=== PATIENT | male | born 1985 | race Caucasian/White ===

== ENCOUNTER 2017-03-29 14:01 | Emergency (ER) | payer OTHER ==
[2017-03-29 14:07] VITALS: BP 135/71
[2017-03-29] MEDS ORDERED: Ciproflox/Dexameth OTIC.SUSP* 7.5 ML BTL ONE (16:02)
[2017-03-29] MEDS ORDERED: Ciproflox/Dexameth OTIC.SUSP* 7.5 ML BTL RIGHT EAR SCH (21:00)
--- NOTE | 2017-04-02 09:18 | ED ---
Throat Pain/Nasal Congestion - HPI Summary HPI Summary: Patient presents with two days of feeling like something is "in his right ear". He has not placed anything in his ear. He denies drainage, pain or redness. His hearing is intact. No fever, chills, TURNER, facial swelling or pain. - History of Current Complaint Chief Complaint: EDEarPain Time Seen by Provider: 03/29/17 14:59 Hx Obtained From: Patient Onset/Duration: Gradual Onset Severity: Mild Associated Signs And Symptoms: Positive: Negative Cough: None PMH/Surg Hx/FS Hx/Imm Hx Previously Healthy: Yes Infectious Disease History: No Infectious Disease History: Denies: Traveled Outside the [place] in Last 30 Days - Family History Known Family History: Positive: None - Social History Occupation: Employed Full-time Lives: With Family Alcohol Use: None Substance Use Type: Reports: None Smoking Status (MU): Never Smoked Tobacco Review of Systems Negative: Fever, Chills Negative: Sore Throat, Ear Ache, Nasal Discharge Negative: Rash Negative: Headache All Other Systems Reviewed And Are Negative: Yes Physical Exam Triage Information Reviewed: Yes Vital Signs On Initial Exam: Initial Vitals Temp 97.5 F 03/29/17 14:04 Vital Signs Reviewed: Yes Appearance: Positive: Well-Appearing, No Pain Distress, Well-Nourished Skin: Positive: Warm, Skin Color Reflects Adequate Perfusion, Dry, Soft Head/Face: Positive: Normal Head/Face Inspection Eyes: Positive: EOMI, IRINEO, Conjunctiva Clear ENT: Positive: Hearing grossly normal, Pharynx normal, TMs normal - left; right is obscured by cerumen Neck: Positive: Supple, Nontender, No Lymphadenopathy Respiratory/Lung Sounds: Positive: Breath Sounds Present Cardiovascular: Positive: RRR Musculoskeletal: Negative: Edema Left, Edema Right Neurological: Positive: Sensory/Motor Intact, Alert, Oriented to Person Place, Time, NV Bundle Intact Distally, Normal Gait Psychiatric: Positive: Affect/Mood Appropriate AVPU Assessment: Alert Diagnostics - Vital Signs Vital Signs Temp Pulse Resp BP Pulse Ox 03/29/17 14:06 97.1 F 61 20 135/71 100 03/29/17 14:04 97.5 F - Laboratory Lab Statement: Any lab studies that have been ordered have been reviewed, and results considered in the medical decision making process. EENT Course/Dx - Course Course Of Treatment: The patient's ear was flushed with warm water to remove cerumen impaction, after which his sensation of FB decreased. The aural canal was erythtematous on inspection after disimpaction and he was treated for potential otitis externa. - Differential Diagnoses Differential Diagnoses: Allergic Rhinitis, Barotrauma, Cerumen Impaction, Foreign Body, Otitis Externa, Otitis Media, Perforated TM, Sinusitis - Diagnoses Provider Diagnoses: Cerumen impaction, Otitis externa Discharge - Discharge Plan Condition: Stable Disposition: HOME Patient Education Materials: Otitis Externa (ED), Cerumen Impaction (ED) Referrals: Medhat Baugh NP [Primary Care Provider] - Additional Instructions: Please use 4 drops every 12 hours in your right ear for 7 days. Follow-up with your primary care provider if symptoms persist. Return to the emergency department if symptoms worsen.
== END 2017-03-29 16:10 | disposition home or self-care (01) ==
LOC: ED 14:01
DX: H61.21 Impacted cerumen, right ear (principal); H60.91 Unspecified otitis externa, right ear
CPT/HCPCS: 99282; A9270-GY

== ENCOUNTER 2018-05-14 16:20 | Emergency (ER) | payer OTHER ==
--- NOTE | 2018-05-14 16:41 | ED ---
GI/ HPI - HPI Summary HPI Summary: Pt. is a 32 y.o male who presents to the ER for potential exposure to bloodborne pathogens. Pt. states he had unprotected vaginal intercourse 3 days ago with a new partner. Pt. states there was a small amount of vaginal bleeding afterwards. Pt. states that this partner told him today that her last partner was an IV drug user whom she had unprotected sex with. Pt. does not believe partner has been tested recently. Pt. denies past medical history. He states vaccinations are up to date. Symptoms are moderate in severity. No current modifying factors. Pt. otherwise denies dysuria, penile discharge, or rashes. - History of Current Complaint Chief Complaint: EDExposureBodyFluid Time Seen by Provider: 05/14/18 16:38 Stated Complaint: EXPOSURE Hx Obtained From: Patient Pain Intensity: 0 - Allergy/Home Medications Allergies/Adverse Reactions: Allergies Allergy/AdvReac Type Severity Reaction Status Date / Time No Known Allergies Allergy Verified 05/14/18 17:42 PMH/Surg Hx/FS Hx/Imm Hx Previously Healthy: Yes Infectious Disease History: No Infectious Disease History: Denies: Traveled Outside the [place] in Last 30 Days - Family History Known Family History: Positive: None - Social History Occupation: Works From/At Home Lives: Alone Alcohol Use: None Substance Use Type: Reports: None Smoking Status (MU): Never Smoked Tobacco Review of Systems Genitourinary: Negative All Other Systems Reviewed And Are Negative: Yes Physical Exam Triage Information Reviewed: Yes Vital Signs On Initial Exam: Initial Vitals Temp Pulse Resp BP Pulse Ox 98.6 F 73 16 139/86 100 05/14/18 16:23 05/14/18 16:23 05/14/18 16:23 05/14/18 16:23 05/14/18 16:23 Vital Signs Reviewed: Yes Appearance: Positive: Well-Appearing - Pt. sitting in chair in NAD. Anxious. Skin: Positive: Warm, Dry Head/Face: Positive: Normal Head/Face Inspection Eyes: Positive: Normal Neck: Positive: Supple Neurological: Positive: Normal, CN Intact II-III Psychiatric: Positive: Affect/Mood Appropriate Diagnostics - Vital Signs Vital Signs Temp Pulse Resp BP Pulse Ox 05/14/18 16:23 98.6 F 73 16 139/86 100 - Laboratory Lab Statement: Any lab studies that have been ordered have been reviewed, and results considered in the medical decision making process. GIGU Course/Dx - Course Course Of Treatment: Pt. presenting for potential bloodborne pathogen exposure. Pt. would like prophylactically treated. Labs drawn. Discussed with Dr. Dimas who agrees with treatment. Pt. states that he is going out of town next week and will not be able to get f.u for rest of treatment course. Will rx 28 day course. Pt. to f.u with PCP and ID for test resuls and repeat testing. Advised pt. to advise sexual partner to be treated. To avoid sexual exposure until tx complete. Pt. understands and agrees with plan. - Diagnoses Differential Diagnoses - Male: Hepatitis, STD Provider Diagnoses: Patient exposure to body fluids Discharge - Sign-Out/Discharge Documenting (check all that apply): Patient Departure - Discharge Plan Condition: Good Disposition: HOME Prescriptions: Ondansetron TAB* [Zofran 4 MG Tab*] 4 mg PO Q6H PRN #12 tab PRN Reason: Nausea Raltegravir* [Isentress*] 400 mg PO BID 28 Days #56 tab Tenofovir/Emtricitab 200/300 * [Truvada 200/300 mg*] 1 tab PO DAILY #28 tab Patient Education Materials: Postexposure Prophylaxis (ED), Body Substance Exposure (ED) Referrals: Olegario LUDWIG,Sherif Mckee [Medical Doctor] - Medhat Baugh NP [Primary Care Provider] - Additional Instructions: Schedule a follow up appointment with your PCP and infectious disease for further testing and treatment Take medication as directed Avoid sexual contact until further notice Encourage sexual partner to be tested Always use sexual protection Return to ER if symptoms change or worsen - Billing Disposition and Condition Condition: GOOD Disposition: Home
--- OUTSIDE RECORDS SUMMARY | 2018-05-14 16:45 | XMS REPORT ---
:1985 External Reference #:[id number] Author Organization [facility] Address [address] [place] [address] [place] [address] Phone [phone] Care Team Providers Name Role Phone Ba Michael III, MD Primary Care Physician Unavailable Payers Type Date Identification Numbers Payment Provider Subscriber Medicaid Expires: 2017 Policy Number: [id number] Medicaid Driss [employer] Group Name: 1 1 [address] PayID: [id number] [place] [address] Commercial Policy Number: [id number] [place] Driss Roberson Group Name: [id number] [address] PayID: [id number] [place] [address] Problems Description No Active Problems Family History Date Family Member(s) Problem(s) Comments Father Mental Illness NOS Social History Type Date Description Comments Marital Status Single Occupation Provides music for travelling [employer] ETOH Use Denies alcohol use Smoking Patient has never smoked Recreational Drug Use Denies Drug Use Daily Caffeine Does Not Consume Caffeine Exercise Type/Frequency Exercises sporadically Allergies, Adverse Reactions, Alerts Date Description Reaction Status Severity Comments 06/07/2016 NKDA active Medications Medication Date Status Form Strength Qnty SIG Indications Ordering Provider Doxycycline Hx Capsules 100mg 28caps one A69.20 Medhat Hyclate 018 - tablet ROSALINDA Baugh twice 018 daily for 14 days. No Active Hx Unknown Medications 018 - 018 Doxycycline Hx Capsules 100mg 28caps si A69.20 Medhat Monohydrate 017 - twice a ROSALINDA Baugh day x 14 017 days Doxycycline Hx Capsules 100mg 28caps one A69.20 Medhat Hyclate 017 - tablet ROSALINDA Baugh twice 017 daily for 14 days. Omeprazole Hx Capsules DR 20mg 30caps 1 by K21.9 Medhat 017 - mouth ROSALINDA Baugh once 017 daily No Active Hx Medhat Medications 016 - ROSALINDA Baugh 017 Vital Signs Date Vital Result Comment 04/20/2018 Height 74 inches 6'2" per pt Weight 210.75 lb Heart Rate 79 /min BP Systolic 116 mmHg BP Diastolic 64 mmHg Body Temperature 98.7 F O2 % BldC Oximetry 98 % BMI (Body Mass Index) 27.1 kg/m2 04/17/2017 Weight 211.00 lb Heart Rate 59 /min BP Systolic Sitting 120 mmHg BP Diastolic Sitting 88 mmHg Body Temperature 97.9 F O2 % BldC Oximetry 98 % 03/20/2017 Weight 212.50 lb Heart Rate 63 /min BP Systolic 100 mmHg BP Diastolic 60 mmHg Body Temperature 98.2 F O2 % BldC Oximetry 99 % 11/13/2016 Weight 215.00 lb Heart Rate 76 /min BP Systolic Sitting 112 mmHg BP Diastolic Sitting 68 mmHg Body Temperature 98.3 F O2 % BldC Oximetry 98 % 06/07/2016 Height 74 inches 6'2" Weight 211.00 lb Heart Rate 67 /min BP Systolic 100 mmHg BP Diastolic 60 mmHg Body Temperature 97.7 F O2 % BldC Oximetry 98 % BMI (Body Mass Index) 27.1 kg/m2 05/23/2011 Height 74 inches 6'2" Weight 175.00 lb Heart Rate 56 /min BP Systolic 96 mmHg BP Diastolic 64 mmHg BMI (Body Mass Index) 22.5 kg/m2 Results Test Date Test Result H/L Range Note Semen Analysis Infertility 04/10/2017 Semen Days Abstinent 4 Semen Collection Method Masturbation Semen Volume 4.8 mL 1.5-5.0 Sperm Motility (SEE NOTE) % 70-90 1 Sperm Count 66 x10(6) Low 70-90 Semen Viscosity Normal Normal Sperm Morphology (SEE NOTE) % 2 Semen Reviewed By (SEE NOTE) 3 Comp Metabolic Panel 06/20/2016 Sodium 139 mmol/L 133-145 4 Potassium 4.1 mmol/L 3.5-5.0 4 Chloride 105 mmol/L 101-111 4 Co2 Carbon Dioxide 28 mmol/L 22-32 4 Anion Gap 6 mmol/L 2-11 4 Glucose 98 mg/dL 70-100 4 Blood Urea Nitrogen 15 mg/dL 6-24 4 Creatinine 0.70 mg/dL 0.67-1.17 4 BUN/Creatinine Ratio 21.4 High 8-20 4 Calcium 9.4 mg/dL 8.6-10.3 4 Total Protein 7.1 g/dL 6.4-8.9 4 Albumin 4.3 g/dL 3.2-5.2 4 Globulin 2.8 g/dL 2-4 4 Albumin/Globulin Ratio 1.5 1-3 4 Total Bilirubin 0.60 mg/dL 0.2-1.0 4 Alkaline Phosphatase 54 U/L 34-104 4 Alt 13 U/L 7-52 4 Ast 15 U/L 13-39 4 Egfr Non- 133.3 >60 4 Egfr 171.5 >60 4, 5 CBC Auto Diff 06/20/2016 White Blood Count 5.7 10^3/uL 3.5-10.8 4 Red Blood Count 5.47 10^6/uL High 4.0-5.4 4 Hemoglobin 15.1 g/dL 14.0-18.0 4 Hematocrit 46 % 42-52 4 Mean Corpuscular Volume 84 fL 80-94 4 Mean Corpuscular Hemoglobin 28 pg 27-31 4 Mean Corpuscular HGB Conc 33 g/dL 31-36 4 Red Cell Distribution Width 14 % 10.5-15 4 Platelet Count 253 10^3/uL 150-450 4 Mean Platelet Volume 8 um3 7.4-10.4 4 Abs Neutrophils 3.4 10^3/uL 1.5-7.7 4 Abs Lymphocytes 1.8 10^3/uL 1.0-4.8 4 Abs Monocytes 0.4 10^3/uL 0-0.8 4 Abs Eosinophils 0.1 10^3/uL 0-0.6 4 Abs Basophils 0 10^3/uL 0-0.2 4 Abs Nucleated RBC 0.03 10^3/uL 4 Granulocyte % 58.9 % 38-83 4 Lymphocyte % 31.5 % 25-47 4 Monocyte % 7.3 % 1-9 4 Eosinophil % 1.5 % 0-6 4 Basophil % 0.8 % 0-2 4 Nucleated Red Blood Cells % 0.5 4 Laboratory test 06/20/2016 TSH (Thyroid Stim Horm) 2.53 mcIU/mL 0.34- 5.60 4, 6 finding Lipid Profile 06/20/2016 Triglycerides 132 mg/dL 4, 7 (Trig/Chol/HDL) Cholesterol 118 mg/dL 4, 8 HDL Cholesterol 37.6 mg/dL 4, 9 LDL Cholesterol 54 mg/dL 4, 10 1 80% MOTILE 20% NONMOTILE 2 90% normal 10% eos mid 3 Decreased sperm count with high normal Semen volume, normal morphology and normal motility. Reviewed by Dr. Nielsen 4 PT IS FASTING 5 Because ethnic data is not always readily available, this report includes an eGFR for both -Americans and non- Americans. The National Kidney Disease Education Program (NKDEP) does not endorse the use of the MDRD equation for patients that are not between the ages of 18 and 70, are , have extremes of body size, muscle mass, or nutritional status, or are non- or non-. According to the National Kidney Foundation, irrespective of diagnosis, the stage of the disease is based on the level of kidney function: Stage Description GFR(mL/min/1.73 m(2)) 1 Kidney damage with normal or decreased GFR 90 2 Kidney damage with mild decrease in GFR 60-89 3 Moderate decrease in GFR 30-59 4 Severe decrease in GFR 15-29 5 Kidney failure <15 (or dialysis) 6 PT IS FASTING 7 Desirable <150 Borderline high 150-199 High 200-499 Very High >500 8 Desirable <200 Borderline high 200-239 High >239 9 Low <40 Desirable: 40-60 High: >60 10 Desirable: <100 mg/dL Near Optimal: 100-129 mg/dL Borderline High: 130-159 mg/dL High: 160-189 mg/dL Very High: >189 mg/dL Procedures Date CPT Code Description Status 06/20/2016 15980 ECHO Transthoracic, Real-Time 2D With Doppler And Color Completed Flow 06/07/2016 37942 EKG Tracing & Interpretation Completed Encounters Type Date Location Provider CPT E/M Dx Office Visit 04/17/2017 8:40a [facility] [place] [address] [id number] [facility] A69.20 Office Visit 03/20/2017 10:00a [facility] - Medhat Baugh, ROSALINDA 84252 Z31.41 [place] Office Visit 11/13/2016 4:00p [facility] - Mdehat Baugh, ROSALINDA 38657 K21.9 [facility] D48.5 Office Visit 06/07/2016 2:00p [facility] [place] [address] R07.89 [place] Z13.220 R94.31 Office Visit 05/23/2011 11:15a [facility] Emily Pate, [address] 238.1 Of [facility] Plan of Care 04/20/2018 - Medhat Baugh, ROSALINDAA69.20 Lyme disease, unspecifiedNew Medication: Doxycycline Hyclate 100 mgComments:Complete the entire course of antibiotic. This may make you sensitive to the sun so avoid a lot of direct sunlight. Let me know if there is any worsening.
[2018-05-14] MEDS ORDERED: Tenofovir/Emtricitab 200/300 * TAB PO ONE (17:01)
[2018-05-14] MEDS ORDERED: Raltegravir* 400 MG TAB PO ONE (17:01)
[2018-05-14 17:54] VITALS: BP 119/70
== END 2018-05-14 17:54 | disposition home or self-care (01) ==
LOC: ED 16:20
DX: Z77.21 Contact with and (suspected) exposure to potentially hazardous body fluids (principal); Z72.51 High risk heterosexual behavior
CPT/HCPCS: 36415; 86703; 86803; 87340; 87491; 87591; 99282